=== PATIENT | male | born 1980 | race Caucasian/White ===

== ENCOUNTER 2016-10-03 00:03 | Emergency (ER) | payer MEDICAID, OTHER, SELFPAY ==
[~2016-10-03] VITALS: Ht 177.8 cm; Wt 102.9 kg
[2016-10-03] MEDS ORDERED: METOCLOPRAMIDE 5 MG/ML, 2ML ONE (00:50)
[2016-10-03] MEDS ORDERED: DIPHENHYDRAMINE 50 MG/ML, 1ML ONE (00:50)
[2016-10-03] MEDS ORDERED: KETOROLAC 30 MG/1 ML ONE (00:50)
[2016-10-03] MEDS ORDERED: SODIUM CHLORIDE 0.9% 1,000ML IVBOLUS ONE (01:00)
[2016-10-03] MEDS ORDERED: DIPHENHYDRAMINE 50 MG/ML, 1ML IVPush ONE (01:00)
[2016-10-03] MEDS ORDERED: METOCLOPRAMIDE 5 MG/ML, 2ML IVPush ONE (01:00)
[2016-10-03] MEDS ORDERED: KETOROLAC 30 MG/1 ML IVPush ONE (01:00)
[2016-10-03] MEDS ORDERED: SUMA100T4 PO (01:08)
[2016-10-03] MEDS ORDERED: OXYB5TAB PO (01:08)
[2016-10-03 02:05] VITALS: BP 110/66
== END 2016-10-03 02:09 | disposition home or self-care (01) ==
LOC: ED 02:03
DX: R51 Headache (principal)
CPT/HCPCS: 96361; 96374; 96375; 99284; J1200; J1885; J2765; J7030

== ENCOUNTER 2019-11-07 22:29 | Emergency (ER) | payer MEDICAID ==
[~2019-11-07] VITALS: Ht 177.8 cm; Wt 108.7 kg
[~2019-11-07 22:29] MED LIST: OXYB-39 PO; SUMA100T4 PO
--- NOTE | 2019-11-07 22:42 | NUR ---
ERP TO BEDSIDE.
[2019-11-07] MEDS ORDERED: PROCHLORPERAZINE 5 MG/ML, 2ML ONE (22:59)
[2019-11-07] MEDS ORDERED: DIPHENHYDRAMINE 25 MG CAPSULE ONE (23:00)
[2019-11-07] MEDS ORDERED: PROCHLORPERAZINE 5 MG/ML, 2ML IM ONE (23:00)
[2019-11-07] MEDS ORDERED: KETOROLAC 30 MG/1 ML IM ONE (23:00)
[2019-11-07] MEDS ORDERED: SUMATRIPTAN 6MG/0.5ML SQ ONE (23:00)
[2019-11-07] MEDS ORDERED: DIPHENHYDRAMINE 25 MG CAPSULE PO ONE (23:00)
[2019-11-07] MEDS ORDERED: SUMATRIPTAN 6MG/0.5ML SQ PRN (23:00)
[2019-11-07] MEDS ORDERED: KETOROLAC 30 MG/1 ML ONE (23:00)
[2019-11-07 23:05] LABS: BASOPHILS # (AUTO) 0.04 x10^3/uL (0-0.1); BASOPHILS % (AUTO) 0 % (0-1); EOSINOPHILS # (AUTO) 0.32 x10^3/uL (0-0.4); EOSINOPHILS % (AUTO) 3 % (1-7); LYMPHOCYTES # (AUTO) 3.79 x10^3/uL (1-3.4); LYMPHOCYTES % (AUTO) 29 % (22-44); MD NO; MEAN CORPUSCULAR HEMOGLOBIN 30.2 pg (27.5-34.5); MEAN CORPUSCULAR HGB CONC 33.3 g/dL (33.2-36.2); MEAN CORPUSCULAR VOLUME 90.7 fL (81-97); MEAN PLATELET VOLUME 8.7 fL (7.4-10.4); MONOCYTES # (AUTO) 0.93 x10^3/uL (0.2-0.8); MONOCYTES % (AUTO) 7 % (2-9); NEUTROPHILS # (AUTO) 7.94 x10^3/uL (1.8-6.8); NEUTROPHILS % (AUTO) 61 % (42-75); PLATELET COUNT 219 x10^3/uL (130-400); RED BLOOD COUNT 5.31 x10^6/uL (4.38-5.82); RED CELL DISTRIBUTION WIDTH 13.2 % (9.4-14.8)
[2019-11-07 23:15] LABS: ALBUMIN 3.5 g/dL (3.4-5.0); ANION GAP 6 mmol/L (5-15); CALCIUM 8.7 mg/dL (8.5-10.1); CHLORIDE 106 mmol/L (98-107); CREATININE 1.18 mg/dL (0.7-1.3)
[2019-11-07 23:43] VITALS: BP 116/70
[2019-11-07 23:56] LABS: HCT (SEDRATE) 48.2 % (39.2-51.8)
--- NOTE | 2019-11-08 00:23 | NUR ---
THIS PT HAS A SIGNIFICANT HX OF MIGRAINES. PT CONVERSED WITH ERP POC AND THEN PT STATED RELIEF WITH MEDICATIONS, "I'M READY TO GO HOME AND GO TO SLEEP" PT STATED JUST BEFORE D/C. PT REMAINED ON MONITORS THROUGHOUT STAY AND WAS AT BEDSIDE.
== END 2019-11-08 00:24 | disposition home or self-care (01) ==
LOC: ED 22:59
DX: G43.909 Migraine, unspecified, not intractable, without status migrainosus (principal); H53.149 Visual discomfort, unspecified; F17.210 Nicotine dependence, cigarettes, uncomplicated
CPT/HCPCS: 36415; 80048; 82040; 85025; 85651; 96372; 99284; 99406; J0780; J1885; J3030; Q0163